=== PATIENT | male | born 1975 | race Caucasian/White ===

== ENCOUNTER 2024-05-10 08:51 | Emergency (ER) | payer OTHER, SELFPAY ==
[2024-05-10 08:55] VITALS: BP 156/106; PULSE 68; RESP 18; TEMP 36.4; O2SAT 99; BMI 25.1
[2024-05-10 09:03] VITALS: BP 140/99; BP 154/100; BP 154/98; PULSE 62; PULSE 67; PULSE 73
--- NOTE | 2024-05-10 09:45 | ED.DIZZY ---
HPI - Dizziness General Chief Complaint: Dizziness/Vertigo Stated Complaint: Dizziness/Vertigo Time Seen by Provider: 05/10/24 09:13 History of Present Illness HPI Narrative: This 48-year-old male comes in reporting some episodes of dizziness which she clarifies to be vertigo. He states if he remains still symptoms are absent but on occasion with certain movements he starts to feel some sense of movement. Occasionally there is a nausea a symptom accompanying this. He does not have any other reports of symptoms. He states that he does have some anxiety and that is amplifying these symptoms. He states that he has had some mild vertigo feelings occasionally on and off over the past few years. He does not report any episodes of tinnitus or hearing loss. Related Data Previous Rx's ?Medication ?Instructions ?Recorded meclizine 25 mg tablet 25 mg PO QID #20 tabs 05/10/24 Allergies Allergy/AdvReac Type Severity Reaction Status Date / Time amoxicillin Allergy Severe Verified 05/10/24 08:59 Review of Systems Status of ROS: Reports: 10 or more systems reviewed and unremarkable except as noted in History and below Narrative: Constitutional: No fevers, no weight gain or loss. Eyes: No discharge. No vision changes. HENT: No congestion, no sore throat, no ear pain. Cardiovascular: No chest pain, no palpitations. Respiratory: No shortness of breath, no wheezes, no cough. Gastrointestinal: No abdominal pain, no vomiting, no diarrhea. Genitourinary: No dysuria, no hematuria. Musculoskeletal: Normal range of motion. Skin: No rashes, no pruritis. Neurological: No weakness, sensory change, speech change. Vertigo symptoms as described above. Endo/Heme/Allergies: No bruising or bleeding. No polydipsia. Pysch: no suicidality, no anxiety, no insomnia. All other systems reviewed and are negative. Exam Narrative: Exam Narrative: Constitutional: Well-developed, well-nourished, no acute distress. HEENT: Normocephalic, atraumatic. Neck: Normal range of motion. Nontender. Supple. Heart: Regular. No murmurs. Normal rate. Intact distal pulses. Lungs: Clear to auscultation. No chest discomfort. No wheezes, rhonchi, or rales. Abdomen: Normal bowel sounds. Nontender. No rebound tenderness. Genitalia: Deferred. Back: No midline tenderness. Normal range of motion. Extremities: Normal range of motion. No injury. Skin: Intact. No rash. Warm. No erythema or pallor. Neurologic: No altered sensation. No weakness. Alert and oriented. No facial asymmetry. Tongue is midline. [id number] is normal. No pronator drift. Partridge Farmer strength is equal bilaterally. Able to raise each leg from the bed. Psychiatric: No suicidality. No anxiety or depression. No insomnia. Nursing notes and vitals signs are reviewed. Const: Vital Signs, click to edit/add: Vital Signs - 24 hr 05/10/24 08:55 05/10/24 09:03 Temperature 97.6 F Pulse Rate [Right Pulse Oximeter] 68 Pulse Rate [orthos tatic lying] 62 Pulse Rate [orthos tatic sitting] 67 Pulse Rate [orthos tatic standing] 73 Respiratory Rate 18 Blood Pressure [Ri ght Upper Arm] 156/106 H Blood Pressure [or thostatic lying] 154/98 H Blood Pressure [or thostatic sitting] 154/100 H Blood Pressure [or thostatic standing ] 140/99 H Pulse Oximetry 99 Oxygen Delivery Me thod Room Air Course Vital Signs Vital signs: Initial Vital Signs Temperature 97.6 F 05/10/24 08:55 Temperature Source Temporal Artery Scan 05/10/24 08:55 Pulse Rate 68 05/10/24 08:55 Pulse Rhythm Regular 05/10/24 08:55 Pulse Strength 3+ Normal 05/10/24 08:55 Respiratory Rate 18 05/10/24 08:55 Blood Pressure 156/106 H 05/10/24 08:55 Blood Pressure Mean 122 H 05/10/24 08:55 Blood Pressure Position High-Fowlers 05/10/24 08:55 Pulse Oximetry 99 05/10/24 08:55 Oxygen Delivery Method Room Air 05/10/24 08:55 Vital Signs Temperature 97.6 F 05/10/24 08:55 Pulse Rate 68 05/10/24 08:55 Respiratory Rate 18 05/10/24 08:55 Blood Pressure 156/106 H 05/10/24 08:55 Pulse Oximetry 99 05/10/24 08:55 Oxygen Delivery Method Room Air 05/10/24 08:55 Temperature 97.6 F 05/10/24 08:55 Pulse Rate 62 05/10/24 09:03 Respiratory Rate 18 05/10/24 08:55 Blood Pressure 154/98 H 05/10/24 09:03 Pulse Oximetry 99 05/10/24 08:55 Oxygen Delivery Method Room Air 05/10/24 08:55 MDM - Dizziness MDM Narrative Medical decision making narrative: This patient comes in reporting episodes of vertigo. He does not have any neurologic deficits and otherwise is healthy. His symptoms are absent when remaining still. He states that he typically feels normal in the morning but as afternoon arrives [place] have some occasions of vertigo. I did discuss most common causes of vertigo and findings that would be more suspicious of something more serious. I did discuss imaging studies and labs but these were declined in a process of shared decision making as more common causes of vertigo are not detected with these studies. I did advise him regarding signs and symptoms that would indicate a need for return re-evaluation. He received a prescription for meclizine and understands that this is a [id number] medicine that he can use as needed and directed. Discharge Plan Discharge Clinical Impression: Acute vestibular neuronitis Patient Disposition: Home, Self-Care Condition: Stable Additional Instructions: Use meclizine as needed and directed for vertigo symptoms. Follow up with MD or return if worsening symptoms occur. Prescriptions: New meclizine 25 mg tablet 25 mg PO QID Qty: 20 2RF Stand Alone Forms: [employer] Info Instructions
== END 2024-05-10 10:06 | disposition home or self-care (01) ==
LOC: ED 10:00
PROVIDERS: Emergency Provider Emergency Medicine Emergency Medical Services
DX: H81.23 Vestibular neuronitis, bilateral (principal)
CPT/HCPCS: 99283; 99284